=== PATIENT | male | born 1990 | race Caucasian/White ===

== ENCOUNTER 2021-08-01 13:57 | Emergency (ER) | payer OTHER, SELFPAY ==
[2021-08-01 14:00] VITALS: BP 131/79; PULSE 95; RESP 17; TEMP 36.3; O2SAT 98; BMI 25.7
--- NOTE | 2021-08-01 15:11 | VDLE_ITS ---
Reason For Study: Pain RIGHT GSV is normal. CFV is compressible, spontaneous, phasic, competent and demonstrates normal augmentation. FV is compressible, spontaneous, phasic, competent and demonstrates normal augmentation. POP V is compressible, spontaneous, phasic, competent and demonstrates normal augmentation. T/P Trunk is compressible. PTV is compressible. RT PerV is compressible. Procedure This is a venous duplex using B-mode, color flow and spectral Doppler. Exam performed portable in ED. A preliminary report was called and/or faxed to ED. VL/Venous Duplex US, Unilateral Interpretation Summary There is no evidence of right lower extremity deep vein thrombosis. Right great saphenous vein appears patent and compressible segmentally. Ordering Physician: Javier Gauthier Performed By: Laura Forte RVT
--- NOTE | 2021-08-01 15:14 | ED.VIS.LOWEX ---
HPI History of Present Illness Chief Complaint: Lower Extremity Injury Informant: patient Narrative Narrative: 30-year-old male presents the emergency department out of concern for blood clot of the right leg. Patient states that on Thursday he underwent ACL and MCL reconstruction by Dr. Bailon at [facility]. He states he had to nerve blocks performed. He states that when he woke up from anesthesia his knee distally was numb. He states that he called the anesthesiologist today he did not feel that that numbness could be related to his nerve block. When discussing with him further its not actually numb its tingling. He states if I would stick a needle into his leg he would scream and say that that would actually hurt. He denies any loss of muscular strength. He states that he did not talk to his surgeon. He does not know how his leg was positioned during surgery PFSH PFSH Allergy/AdvReac Type Severity Reaction Status Date / Time No Known Allergies Allergy Verified 08/01/21 13:58 Surgical History (Updated 08/01/21 @ 15:[address] Javier Gauthier DO) S/P ACL reconstruction Social History (Updated 08/01/21 @ 15:[address] Javier Gauthier DO) Smoking Status: Never smoker substance use type: does not use ROS ROS ED Constitutional Constitutional ED: Denies chills or weight loss Eyes Eyes: Denies change in vision or diplopia ENT ENT ED: Denies ear pain, rhinorrhea or sore throat Cardiovascular Cardiovascular: Denies chest pain, orthopnea, palpitations or racing heartbeat Respiratory/Chest Respiratory/Chest: Denies cough, dyspnea or orthopnea Gastrointestinal Gastrointestinal: Denies abdominal pain, diarrhea, nausea or vomiting Genitourinary Genitourinary ED: Denies dysuria, hematuria or urinary frequency Musculoskeletal Musculoskeletal: Denies arthralgias or myalgias Integumentary Denies abscess or rash Neurologic Neurologic: Reports paresthesias; Denies headache(s) or weakness Psychiatric Psychiatric: Denies anxiety, depression, suicidal ideation or suicidal thoughts Endocrine Endocrinology: Denies polydipsia, polyphagia or polyuria Allergic/Immunologic Allergic/Immunologic ED: Denies mouth swelling, tongue swelling or urticaria EXAM Physical Exam Const Vital Signs: 08/01/21 14:00 Temperature 97.4 F L Temperature Source Temporal Pulse Rate 95 Respiratory Rate 17 Blood Pressure 131/79 H Blood Pressure Mean 96 Pulse Ox 98 Oxygen Delivery Method Room Air Positive well nourished and well developed General Appearance ED: well developed HEENT Reports normocephalic, head/scalp atraumatic and moist mucous membranes Eyes PERRL and EOMs intact bilaterally Neck no lymphadenopathy, supple and no JVD Resp normal respiratory effort and clear to auscultation bilaterally Cardio regular rate, regular rhythm and no murmurs GI normal to inspection, nondistended, normoactive bowel sounds and non-tender Palpation: soft Back/Spine no CVA tenderness and normal ROM Extremity Extremity Narrative: The suture sites appear well and without complication. He has some ecchymosis about the knee. There is swelling of the knee and the leg. There is no calf tenderness. Patient reports tingling with palpation of the skin from the proximal knee inferiorly. No loss of motor strength. General Extremety ED: Negative for edema General Extremity: Negative for edema Neuro oriented x3 and CN's II-XII intact bilaterally Sensorium / Orientation: alert Motor Exam: strength 5/5 throughout Psych mental status grossly normal Mood & Affect: Negative for depressed or tearful Skin no rashes or lesions noted and no wounds MDM MDM MDM Narrative Medical decision making narrative: A duplex ultrasound was obtained which is negative for DVT. Patient has sensory changes but not numbness and no motor changes. Patient will be discharged home with instructions to follow-up with his surgeon next Thursday as scheduled. Return if worsening or concerns Discharge Plan Triage Chief Complaint: Lower Extremity Injury ED Provider: Javier Gauthier Dx/Rx/DC Orders Clinical Impression: Paresthesia of right leg Instructions: ED Paraesthesias Primary Care Provider: Care Physician,No Primary Referrals: Care Physician,No Primary [Primary Care Provider] - Activity Restrictions/Additional Instructions: Please follow-up with your surgeon as scheduled Disposition Disposition: Home, Self Care
[2021-08-01 16:15] VITALS: BP 127/88; PULSE 81; RESP 14; O2SAT 98
== END 2021-08-01 16:16 | disposition home or self-care (01) ==
PROVIDERS: Emergency Provider Emergency Medicine
DX: R20.2 Paresthesia of skin (principal)
CPT/HCPCS: 93971; 99282